=== PATIENT | male | born 1990 | race Caucasian/White ===

== ENCOUNTER 2024-09-06 23:05 | Emergency (ER) | payer MEDICAID, SELFPAY ==
[2024-09-06 23:13] VITALS: PULSE 83; O2SAT 97
[2024-09-06 23:16] VITALS: BP 145/105; PULSE 68; RESP 20; TEMP 36.4; O2SAT 95
[2024-09-06 23:18] VITALS: BMI 27.6
[2024-09-06 23:25] VITALS: BP 128/99; PULSE 68; RESP 19
[2024-09-06 23:57] VITALS: BP 149/91; PULSE 75; RESP 16
[2024-09-07 01:00] VITALS: BP 115/94; PULSE 83; RESP 21; TEMP 36.9; O2SAT 95
--- NOTE | 2024-09-07 01:22 | PD.EDADULT ---
ED General RME/HPI General Chief complaint: General Adult/Misc Complain Stated complaint: WEAKNESS,LETHARGIC Arrival date/time: 09/06/24 23:05 RME / HPI RME / HPI narrative: Dr. Gutierrez?s Main ED Evaluation: 33yo male AP presents to the ED after being found sleeping in the [facility] parking lot. Patient denies any drugs alcohol or smoking. Patient is homeless. Patient states that he was there with his when police arrived and he was brought to the emergency department. Denies fevers chills nausea vomiting chest pain palpitations abdominal pain dysuria hematuria melena bloody stools recent travel sick contacts Related Data Previous Rx's ?Medication ?Instructions ?Recorded naproxen 500 mg tablet 500 mg PO BID PRN pain #30 tabs 11/11/23 Allergies Allergy/AdvReac Type Severity Reaction Status Date / Time No Known Allergies Allergy Verified 11/09/23 22:32 Review of Systems Review of Systems Systems Reviewed: All systems reviewed, normal except as documented ED Exam Narrative Physical exam: GEN. APPEARANCE: The patient is alert awake oriented X-3 in no distress, lying down comfortably, does not look ill/toxic. Patient has good eye contact. Patient is cooperative. VITALS: All vitals were reviewed and the pulse ox is 95% on room air which is normal according to my interpretation. HEENT: Normocephalic, atraumatic. Pupils are equal and reactive. Oral mucosa is moist. Patent Nares NECK: Supple, nontender, no thyromegaly, no meningismus, no JVD CHEST: Symmetrical, atraumatic, and with equal expansion , Nontender on palpation no deformity and no crepitus. CARDIOVASCULAR: Heart regular rhythm no murmur or gallop rub or extra beats. LUNGS: Clear to auscultation bilaterally with symmetrical chest rise. No laboring tachypnea or wheezing. No intercostal subcostal retraction. No rales and no rhonchi. ABDOMEN: Soft, flat, nontender to palpation, no guarding or rebound tenderness. There are no abnormal masses palpated. Active and normal bowel sounds. EXTREMITIES: Nontender. No edema. No cyanosis. Patient is able to move all 4 extremities well, with full ROM and good CSM. SKIN: Warm and dry, no jaundice or rashes noted. NEURO: Patient is LEAL x 4, Cranial nerves II through XII grossly intact. There is no focal neurologic deficits noted. GCS is 15, PNS and SINGING TEACHER appear grossly intact. PSYCHIATRIC: Patient is in normal mood and affect. Course Quality Measures none Vital Signs Vital signs: Vital Signs Temperature 97.5 F 09/06/24 23:16 Pulse Rate 68 09/06/24 23:16 Respiratory Rate 20 09/06/24 23:16 Blood Pressure 145/105 H 09/06/24 23:16 Pulse Oximetry (%) 95 09/06/24 23:16 Oxygen Delivery Method Room Air 09/06/24 23:16 Discharge Plan Plan Patient Disposition: HOME (Self Care) Prescriptions/Referrals Prescriptions/Med Rec: No Action naproxen 500 mg tablet 500 mg PO BID PRN (Reason: pain) Qty: 30 0RF Referrals: No Primary/Family,Physician [Primary Care Provider] - In 1 week Problem List Clinical Impression: Homeless Patient/Caregiver Discharge Instructions Print Language: Kiswahili Stand Alone Forms: [facility] Award Info., Patient Portal Info Letter MDM Narrative [facility] hospital course: Scribe Attestation: 09/07/24 - Heather Guzmán am scribing for and in the presence of Dr. Gutierrez. Patient is a 33-year-old male with an emergency program brought in by EMS after he was found sleeping in the parking lot of a school. Patient states he is homeless, denies any drugs alcohol or smoking. On my assessment, patient GCS 15, ambulates without any difficulty, is clinically sober. Patient without any signs of trauma. Patient remembers the entire event. Patient states that he was with his boyfriend, the police arrived and he was brought here to the emergency department. Do not suspect acute intoxication at this time, no acute metabolic disturbance electrolyte abnormality, acute intracranial pathology given unremarkable exam. Given reassuring physical exam we will discharge patient in the care of his boyfriend. Clinical Information Provided by patient Medical Records Reviewed [facility] (Per chart review, patient was seen here on 11/12/23 for kidney stone.) Meds/Rx Considered, not Ordered None Labs/Rad/Tests considered, not Ordered None Chronic Illness/Social Conditions which may negatively complicate care or outcome(s)-explain: None or not applicable EKG EKG not done Lab Interpretation Labs: none Imaging Imaging interpretation: none Medication Administration(s) none Diagnosis Differential diagnosis: Homeless, sleepy, tired Most likely dx, and/or detailed dx discussion: Homeless Dispositon Disposition: Discharge Home
== END 2024-09-07 01:33 | disposition home or self-care (01) ==
PROVIDERS: Emergency Provider Emergency Medicine
DX: R53.1 Weakness (principal); Z59.00 Homelessness unspecified
CPT/HCPCS: 99281

== ENCOUNTER 2024-09-12 20:54 | Emergency (ER) | payer MEDICAID, SELFPAY ==
--- NOTE | 2024-09-12 21:02 | PD.EDAMS ---
Altered Mental Status RME/HPI General Chief Complaint: Altered Mental Status Stated Complaint: AMS Time Seen by Provider: 09/12/24 21:02 Arrival date/time: 09/12/24 21:00 Limitations: altered mental status RME / HPI RME / HPI narrative: DR. PETERSEN MAIN ED EVALUATION: 33 y/o male with Hx of depression, homelessness, and recreational drug use BIBA from outside an apartment complex for altered mental status. Patient was found unconscious by a bystander who called EMS as patient was GCS of 3. Per EMS, on arrival, patient was GCS of 10, blood sugar was 81 mg/dL and diaphoretic. Pupils were dilated and reactive to light. EMS was unable to obtain a medical or allergy history as patient was not answering questions. No other concerns or complaints expressed at this time. 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 HOUSING: Homeless OCCUPATION: Unemployed ED Exam General Limitations: Present altered mental status; Absent no limitations General appearance: Present in no apparent distress Head Head exam: Present atraumatic Eye Eye exam: Present normal appearance, PERRL and EOMI ENT ENT exam: Present normal exam, normal oropharynx and mucous membranes moist Neck Neck exam: Present normal inspection, full ROM and trachea midline Chest Chest inspection: Present normal inspection and symmetric chest wall rise Respiratory Respiratory exam: Present normal lung sounds bilaterally Cardiovascular Cardiovascular exam: Present regular rate, normal rhythm and normal heart sounds Abdominal Exam Abdominal exam: Present soft and normal bowel sounds Extremities Exam Extremities exam: Present normal inspection and full ROM Back Exam Back exam: Present normal inspection and full ROM Neurological Exam Neurological exam: Present CN II-XII intact; Absent alert or oriented X3 Psychiatric Psychiatric exam: Present normal affect and normal mood Skin Skin exam: Present warm, dry, intact and normal color Course Quality Measures none Orders Category Date Time Status Comparison Shopper STAT Care 09/12/24 21:03 Completed Continuous Pulse Oximetry ONCE Care 09/12/24 21:03 Completed EKG (ED ONLY) *Do not use* NOW Care 09/12/24 21:03 Completed Insert IV STAT Care 09/12/24 21:03 Completed Straight [In and Out Catheter] X1 Care 09/13/24 00:[address] head/brain wo con Stat Exams 09/12/24 21:06 Completed EKG (ED Only) Stat Exams 09/12/24 21:03 Ordered XR chest 1V portable Stat Exams 09/12/24 21:03 Completed Acetaminophen Stat Lab 09/12/24 21:22 Completed Alcohol, Blood Medical Stat Lab 09/12/24 21:22 Completed B-Type Natriuretic Peptide Stat Lab 09/12/24 22:39 Completed CBC Stat Lab 09/12/24 21:22 Completed Comprehensive Metabolic Panel Stat Lab 09/12/24 21:22 Completed Drug Screen,Urine Stat Lab 09/13/24 00:30 Completed Lipase Stat Lab 09/12/24 21:22 Completed Magnesium Stat Lab 09/12/24 21:22 Completed Salicylate Stat Lab 09/12/24 21:22 Completed Troponin I Stat Lab 09/12/24 21:22 Completed VBG [Venous Blood Gas] Stat Lab 09/12/24 21:22 Completed Vital Signs Vital signs: Vital Signs Temperature 98.4 F 09/12/24 21:10 Pulse Rate 60 09/12/24 21:10 Respiratory Rate 18 09/12/24 21:10 Blood Pressure 137/89 H 09/12/24 21:10 Pulse Oximetry (%) 96 09/12/24 21:10 Oxygen Delivery Method Room Air 09/12/24 21:10 Altered Mental Status MDM Narrative MDM Narrative:: Scribe Attestation: Octavia Guzmán am scribing for and in the presence of Dr. Petersen. Provider Notation: Although this document has been carefully reviewed, there may still be some phonetic and other typographical errors.? These errors are purely grammatical due to imperfections in the software program and should not be construed in any way to? compromise the substance of the patient's medical care during this visit. Patient pending review and final disposition. Patient sigedn-out to Dr. Forrester at 11 PM. Patient data External records reviewed:: [facility] previous records ( Reviewed prior ED records from 09/07/24. Patient was seen for Homeless.) and EMS form Clinical information provided by:: EMS Social determinants that could affect healthcare access:: substance use (Methamphetamine, Homeless) Patient has the following chronic illnesses:: Recreational drug use How is presenting disease/condition affected by chronic disease/condition?: exacerbated by Evaluation data The following diagnostics were reviewed and interpreted by me:: lab results, radiology exam(s) and EKG tracing(s) Lab and/or radiology exams considered but not ordered:: None Interpretation Summary: RADIOLOGY Procedure(s): XR chest 1V portable Accession Number(s): [id number] cc: Óscar Petersen MD; Raúl Godwin MD; NO PRIMARY/FAMILY,PHYSICIAN~ Examination: Chest AP single view TECHNIQUE: AP portable supine chest single view Date and time: September 12, 2024 2122 hours INDICATIONS: Chest pain shortness of breath today. FINDINGS: Normal heart size. The lungs are clear. The osseous structures are intact IMPRESSION: No active disease Dictated By: Raúl Godwin MD Procedure(s): CT head/brain wo con Accession Number(s): [id number] cc: Óscar Petersen MD; Raúl Godwin MD; NO PRIMARY/FAMILY,PHYSICIAN~ Examination: CT brain head without contrast. 2-D sagittal coronal reconstructions Date and time of exam:September 12, 2024 2151 hours INDICATIONS: Altered mental status today CTDI: vol (mGy):54 DLP: (mGycm):1065 Technique: Multiple CT axial sections of the brain have been obtained, 5 mm slice thickness. Contrast has not been administered. 2-D sagittal, coronal reconstructions have been obtained Low dose protocols were performed. One or more of the following dose reduction techniques were used; automated exposure control, adjustment of the mA and/or KV according to patient size, use of iterative reconstruction technique. Findings: No significant ventricular enlargement. Intra-axial or extra-axial hemorrhage density is not seen. No mass effect or midline shift Basal cisterns are not remarkable. Fourth ventricle is midline. Cranial vault intact. Impression: Negative for acute hemorrhage, mass effect or midline shift Advise clinical correlation and follow up accordingly Dictated By: Raúl Godwin MD Medications / Prescriptions Medications or Prescriptions considered but not ordered:: None Medication administrations:: See above if any Consultations Consultation(s) initiated? (list below): No Diagnosis Differential diagnosis altered mental status: alcoholic intoxication, altered mental status, delirium, hypoglycemia, hyponatremia and subarachnoid hemorrhage Most likely diagnosis given after review of the tests above:: Drug use Admission Indicated Admission indicated?: not indicated Explain why admission is indicated or not indicated:: Pending review and final disposition. Admission Request Was there a request for admission?: No Disposition Plan Disposition Plan: other (specify) (Signed-out to Dr. Forrester at 11 PM.) Discharge Plan Plan Patient Disposition: HOME (Self Care) Patient condition on transfer: Stable Prescriptions/Referrals Prescriptions/Med Rec: No Action naproxen 500 mg tablet 500 mg PO BID PRN (Reason: pain) Qty: 30 0RF Referrals: No Primary/Family,Physician [Primary Care Provider] - In 1 week Problem List Clinical Impression: Methamphetamine intoxication Patient/Caregiver Discharge Instructions Discharge Activity: activity as tolerated Education Materials: Understanding Methamphetamine ..., ED Drug Abuse Additional Instructions: Discharge Instructions from Dr. Forrester printed for you: 1. You are treated for methamphetamine intoxication. 2. To prevent future serious injuries and illnesses, even potentially fatal, avoid all drugs at all cost. 3. See a private doctor on 09/14/2024 for recheck and further care. Ask to review all test results and official radiology reports, to make sure you receive all necessary follow-ups and monitoring. Ask for help to quit all drugs. 4. Seek immediate ankle care with any concerns. Print Language: Lao Stand Alone Forms: [facility] Award Info., Patient Portal Info Letter
[2024-09-12 21:03] VITALS: PULSE 88; RESP 18; O2SAT 99
--- NOTE | 2024-09-12 21:03 | XR_ITS ---
Examination: Chest AP single view TECHNIQUE: AP portable supine chest single view Date and time: September 12, 20242121 hours INDICATIONS: Chest pain shortness of breath today. FINDINGS: Normal heart size. The lungs are clear. The osseous structures are intact IMPRESSION: No active disease
--- NOTE | 2024-09-12 21:06 | XR_ITS ---
Examination: CT brain head without contrast. 2-D sagittal coronal reconstructions Date and time of exam:September 12, 2024 2151 hours INDICATIONS: Altered mental status today CTDI: vol (mGy):54 DLP: (mGycm):1065 Technique: Multiple CT axial sections of the brain have been obtained, 5 mm slice thickness. Contrast has not been administered. 2-D sagittal, coronal reconstructions have been obtained Low dose protocols were performed. One or more of the following dose reduction techniques were used; automated exposure control, adjustment of the mA and/or KV according to patient size, use of iterative reconstruction technique. Findings: No significant ventricular enlargement. Intra-axial or extra-axial hemorrhage density is not seen. No mass effect or midline shift Basal cisterns are not remarkable. Fourth ventricle is midline. Cranial vault intact. Impression: Negative for acute hemorrhage, mass effect or midline shift Advise clinical correlation and follow up accordingly
[2024-09-12 21:10] VITALS: BP 137/89; PULSE 60; RESP 18; TEMP 36.9; O2SAT 96
[2024-09-12 21:29] LABS: Base Excess, Venous 0 (-3-3); O2 Saturation, Venous 64 % (96-97); PCO2, Venous 47 mmHg (36-56); PO2, Venous 32 mmHg (15-58); pH, Venous 7.36 (7.33-7.66)
[2024-09-12 21:38] LABS: Basophils # (Auto) 0.1 Thou/mm3 (0.0-0.2); Basophils % (Auto) 1 % (0-2.5); Eosinophils # (Auto) 0.7 Thou/mm3 (0.0-0.5); Eosinophils % (Auto) 8 % (0-10); Hematocrit 48.1 % (41.0-53.0); Hemoglobin 16.9 g/dL (13.5-16.0); Immature Granulocytes Auto 0.03 Thou/mm3 (0.00-0.00); Lymphocytes # (Auto) 3.6 Thou/mm3 (1.0-4.8); Lymphocytes % (Auto) 38 % (10-50); Mean Corpuscular HGB Conc 35.1 g/dl (31.0-37.0); Mean Corpuscular Hemoglobin 32.2 pg (25.0-35.0); Mean Corpuscular Volume 92 fL (80-100); Monocytes # (Auto) 0.7 Thou/mm3 (0.0-0.8); Monocytes % (Auto) 7 % (0-12); Neutrophils # (Auto) 4.5 Thou/mm3 (1.8-7.7); Neutrophils % (Auto) 47 % (37-80); Nucleated Red Blood Cell # 0.00 Thou/mm3 (0.00-0.00); Nucleated Red Blood Cell % 0 /100 WBC (0); Platelet Count 153 Thou/mm3 (140-440); RDW Standard Deviation 41.7 fL (35.1-43.9); Red Blood Count 5.25 Miln/mm3 (4.50-5.90); White Blood Count 9.6 Thou/mm3 (3.8-10.6)
[2024-09-12 21:41] VITALS: BMI 27.7
[2024-09-12 21:55] LABS: Acetaminophen < 2.0 mcg/mL (10.0-20.0); Alanine Aminotransferase 19 U/L (10-49); Albumin, Serum 4.7 gm/dL (3.5-5.0); Albumin/Globulin Ratio 1.7 (1.2-2.2); Alcohol, Blood Medical < 3.0 mg/dL (0-10.0); Alkaline Phosphatase 79 U/L (46-116); Anion Gap 14 (7-16); Aspartate Amino Transferase 25 U/L (0-34); BUN/Creatinine Ratio 7 Ratio (12-20); Bilirubin,Total 0.4 mg/dL (0.3-1.2); Blood Urea Nitrogen 7 mg/dL (9-23); Calcium 9.4 mg/dL (8.3-10.6); Calcium (Corrected) 9.4 mg/dL (8.5-10.1); Carbon Dioxide 21.7 mMol/L (20.0-31.0); Chloride 109 mMol/L (98-107); Creatinine (Component) 1.0 mg/dL (0.6-1.3); Estimated Creatinine Clearance 121.0 mL/min (>60); Globulin 2.8 gm/dL (2.3-3.5); Glucose 86 mg/dL (74-106); Lipase 39 U/L (12-53); Magnesium 2.6 mg/dL (1.6-2.6); Osmolality,Calculated 285 (275-295); Potassium 4.4 mMol/L (3.4-5.1); Salicylate < 3.0 mg/dL; Sodium 145 mMol/L (136-145); Total Protein 7.5 gm/dL (5.7-8.2); Troponin I < 0.002 ng/mL (0.0-0.045); eGFR > 60 See Note
--- NOTE | 2024-09-12 22:19 | PC.NURSE ---
pt awake and alert at this time. pt using his cellphone. pt updated on plan of care. pt made aware waiting for results.
[2024-09-12 22:29] VITALS: BP 164/116; PULSE 96; RESP 20; TEMP 36.8; O2SAT 98
--- NOTE | 2024-09-12 22:59 | PD.EDADDENDU ---
Emergency Room Addendum <Octavia Hawk - Last Filed: 09/13/24 01:48> Addendum Narrative: I took over the care from previous shift physician at 11 PM on 09/12/2024. See previous notes for complete H & P and ED course. I reviewed all diagnostic test results. Blood tests and urine tests show positive for amphetamines. Diagnoses include: Methamphetamine intoxication. Based on my best medical judgment, made decision no further evaluation or treatment indicated at this time. Patient understands and agrees to the discharge instructions customized and printed, see below. Discharge Instructions from Dr. Forrester printed for you: 1. You are treated for methamphetamine intoxication. 2. To prevent future serious injuries and illnesses, even potentially fatal, avoid all drugs at all cost. 3. See a private doctor on 09/14/2024 for recheck and further care. Ask to review all test results and official radiology reports, to make sure you receive all necessary followups and monitoring. Ask for help to quit all drugs. 4. Seek immediate ankle care with any concerns. Todd Forrester MD <Todd Forrester MD - Last Filed: 09/13/24 04:28> Addendum Narrative: I took over the care from previous shift physician at 11 PM on 09/12/2024. See previous notes for complete H & P and ED course. I reviewed all diagnostic test results. Blood tests and urine tests remarkable for positive UDS for methamphetamine. Diagnoses include: Methamphetamine intoxication. With time, patient returned to normal mental status baseline. Patient requested discharge. Based on my best medical judgment, made decision no further evaluation or treatment indicated at this time. Patient understands and agrees to the discharge instructions customized and printed, see below. Discharge Instructions from Dr. Forrester printed for you: 1. You are treated for methamphetamine intoxication. 2. To prevent future serious injuries and illnesses, even potentially fatal, avoid all drugs at all cost. 3. See a private doctor on 09/14/2024 for recheck and further care. Ask to review all test results and official radiology reports, to make sure you receive all necessary followups and monitoring. Ask for help to quit all drugs. 4. Seek immediate ankle care with any concerns. Todd Forrester MD
[2024-09-12 23:10] LABS: B-Type Natriuretic Peptide < 20 pg/mL (0-100)
[2024-09-13 00:06] VITALS: BP 127/84; PULSE 74; RESP 19; O2SAT 97
[2024-09-13 00:31] VITALS: BP 129/92; PULSE 75; RESP 20; TEMP 36.9; O2SAT 97
[2024-09-13 00:57] LABS: Amphetamine/Methamp Scrn,U Positive (Negative); Barbiturate Screen,Urine Negative (Negative); Benzodiazepines Screen,Urine Negative (Negative); Benzoylecgonine Screen, Ur Negative (Negative); Fentanyl Screen,Urine Negative (Negative); Opiate Screen,Urine Negative (Negative); THC Screen,Urine Negative (Negative)
[2024-09-13 02:03] VITALS: BP 109/71; PULSE 79; RESP 17; O2SAT 97
== END 2024-09-13 02:09 | disposition home or self-care (01) ==
PROVIDERS: Emergency Provider Emergency Medicine
DX: F15.129 Other stimulant abuse with intoxication, unspecified (principal); R07.9 Chest pain, unspecified; R41.82 Altered mental status, unspecified; R06.02 Shortness of breath; R00.1 Bradycardia, unspecified
CPT/HCPCS: 36415; 70450; 71045; 80053; 80307; 80320; 80329; 82803; 83690; 83735; 83880; 84484; 85025; 93005; 99284; G0480

== ENCOUNTER 2024-10-23 14:00 | Emergency (ER) | payer MEDICAID, SELFPAY ==
[2024-10-23 15:52] VITALS: BP 151/84; PULSE 78; RESP 22; TEMP 37.2; O2SAT 99
--- NOTE | 2024-10-23 15:58 | XR_ITS ---
Examination: CT abdomen and pelvis without contrast. Coronal 3-D reconstructions. Sagittal 2-D reconstructions. Date and time of exam:October 23, 2024 1452 hours Comparison November 09, 2023 INDICATIONS: Onset right-sided flank pain today, history left hydronephrosis 2 mm distal left ureteral calculus on stone study November 09, 2023 CTDI: vol (mGy): 9.54 DLP: (mGycm): 568 Technique: Axial images of the abdomen have been obtained, 3 mm slice thickness Intravenous contrast material has not been administered. Low dose protocols were performed. One or more of the following dose reduction techniques were used; automated exposure control, adjustment of the mA and/or KV according to patient size, use of iterative reconstruction technique. Findings: No focal liver or splenic lesions No gallstones No pancreatic or adrenal mass 4 mm lower pole left renal calculus Mild right hydronephrosis secondary to 2 mm distal right ureterovesical junction calculus No bladder mass No bowel obstruction Normal appendix IMPRESSION: Mild right hydronephrosis secondary to 2 mm distal right ureterovesical junction calculus
--- NOTE | 2024-10-23 15:59 | PD.EDRME ---
Rapid Medical Screening Exam [facility] Arrival date/time: 10/23/24 14:00 CC: Right flank and right low back pain HPI woke him up at approximately noon today. No prior history of similar events no OTC medicines taken the patient is pale diaphoretic states the pain does wrap around to his lower side. Patient is anxious, in moderate distress. Denies bloody urine painful urination Chief Complaint: Back Pain/Injury Time Seen by Provider: 10/23/24 15:58 Vital signs: Vital Signs Temperature 99.0 F 10/23/24 15:52 Pulse Rate 78 10/23/24 15:52 Respiratory Rate 22 H 10/23/24 15:52 Blood Pressure 151/84 H 10/23/24 15:52 Pulse Oximetry (%) 99 10/23/24 15:52 Oxygen Delivery Method Room Air 10/23/24 15:52
[2024-10-23 16:17] LABS: Basophils # (Auto) 0.1 Thou/mm3 (0.0-0.2); Basophils % (Auto) 1 % (0-2.5); Eosinophils # (Auto) 0.7 Thou/mm3 (0.0-0.5); Eosinophils % (Auto) 5 % (0-10); Hematocrit 45.8 % (41.0-53.0); Hemoglobin 16.0 g/dL (13.5-16.0); Immature Granulocytes Auto 0.05 Thou/mm3 (0.00-0.00); Lymphocytes # (Auto) 2.9 Thou/mm3 (1.0-4.8); Lymphocytes % (Auto) 21 % (10-50); Mean Corpuscular HGB Conc 34.9 g/dl (31.0-37.0); Mean Corpuscular Hemoglobin 32.4 pg (25.0-35.0); Mean Corpuscular Volume 93 fL (80-100); Monocytes # (Auto) 0.7 Thou/mm3 (0.0-0.8); Monocytes % (Auto) 5 % (0-12); Neutrophils # (Auto) 9.3 Thou/mm3 (1.8-7.7); Neutrophils % (Auto) 68 % (37-80); Nucleated Red Blood Cell # 0.00 Thou/mm3 (0.00-0.00); Nucleated Red Blood Cell % 0 /100 WBC (0); Platelet Count 155 Thou/mm3 (140-440); RDW Standard Deviation 43.5 fL (35.1-43.9); Red Blood Count 4.94 Miln/mm3 (4.50-5.90); White Blood Count 13.7 Thou/mm3 (3.8-10.6)
[2024-10-23] MEDS: KETOROLAC INJ 60 MG/2 ML VIAL 30 MG IM (16:41)
[2024-10-23 16:42] LABS: Anion Gap 8 (7-16); BUN/Creatinine Ratio 8 Ratio (12-20); Blood Urea Nitrogen 7 mg/dL (9-23); Calcium 9.5 mg/dL (8.3-10.6); Carbon Dioxide 26.8 mMol/L (20.0-31.0); Chloride 106 mMol/L (98-107); Creatinine (Component) 0.9 mg/dL (0.6-1.3); Glucose 127 mg/dL (74-106); Osmolality,Calculated 281 (275-295); Potassium 4.0 mMol/L (3.4-5.1); Sodium 141 mMol/L (136-145); eGFR > 60 See Note
[2024-10-23] MEDS: ONDANSETRON ODT 4 MG TABRAP PO (16:42)
--- NOTE | 2024-10-23 16:53 | PD.EDADULT ---
ED General RME/HPI General Chief complaint: Back Pain/Injury Stated complaint: R FLANK PAIN Time Seen by Provider: 10/23/24 15:58 Arrival date/time: 10/23/24 14:00 CC: Right flank pain right low back pain with radiation to the right groin onset approximately new with progressive in. Crease in severity denies any vomiting but has active nausea. Patient is diaphoretic. Prior history of kidney stones. RME / HPI RME / HPI narrative: 10/23/24 14:00 CC: Right flank and right low back pain HPI woke him up at approximately noon today. No prior history of similar events no OTC medicines taken the patient is pale diaphoretic states the pain does wrap around to his lower side. Patient is anxious, in moderate distress. Denies bloody urine painful urination Related Data Previous Rx's ?Medication ?Instructions ?Recorded naproxen 500 mg tablet 500 mg PO BID PRN pain #30 tabs 11/11/23 ketorolac 10 mg tablet 10 mg PO Q8H #10 tabs 10/23/24 Allergies Allergy/AdvReac Type Severity Reaction Status Date / Time No Known Allergies Allergy Verified 09/15/24 12:16 Review of Systems Review of Systems Narrative Review of Systems: GEN: No fever, no chills, no weight loss EYES: No discharge, no visual changes, no pain HEENT: No ear pain, no congestion, no sore throat PULM: No shortness of breath, no cough, no congestion CV: No chest pain, no dyspnea on exertion, no palpitations GI: No nausea, no vomiting, no diarrhea, no pain, no constipation : No frequency, no urgency, no dysuria MUSC/SKEL: No joint pain, + back pain SKIN: No rash PSYCH: No hallucinations, no depression HEME/LYMPH: No easy bleeding or bruising tendencies NEURO: No weakness, no headache Past Medical History Past Medical History CARDIAC: Negative Congestive Heart Failure RESPIRATORY: Negative Chronic Obstructive Pulmonary Disease (COPD) GENITOURINARY: Negative Renal Disease ENDOCRINE: Negative Diabetes Mellitus Type 1 or Diabetes Mellitus Type 2 PSYCHO/SOCIAL: Positive Depression Social History SMOKING STATUS: Current every day smoker SUBSTANCE USE: methamphetamine OCCUPATION: Unemployed ED Exam Narrative Physical exam: [General: In moderate discomfort but not in any acute distress Head normocephalic HEENT: Eyes pupils are PERRLA EOMs are intact within acceptable limits Neck is supple nontender Chest equal chest rise nontender to palpation Respiratory: Clear to auscultation no wheezes crackles or rubs CV: Rate rhythm is regular no murmurs rubs or clicks Abdomen is distended secondary to body habitus soft nontender no masses positive bowel sounds all 4 quadrants Back: Right CVA tenderness with palpation no left CVA tenderness. Skin: Diaphoretic, skin is intact no petechiae rash induration ulceration or crepitus Extremities: Moving all extremity against resistance cap refill less than 2 seconds neurosensory intact Neuro: Awake alert oriented x3 Glascow coma 15 no focal deficits] Course Quality Measures none Orders Category Date Time Status CT abdomen pelvis wo con Stat Exams 10/23/24 15:58 Completed Basic Metabolic Panel Stat Lab 10/23/24 15:33 Completed CBC Stat Lab 10/23/24 15:33 Completed Ketorolac Inj [Toradol Inj] Med 10/23/24 15:58 Discontinued 30 mg IM X1 ONE Ondansetron Odt [Zofran Odt] Med 10/23/24 15:58 Discontinued 4 mg PO X1 ONE Vital Signs Vital signs: Vital Signs Temperature 99.0 F 10/23/24 15:52 Pulse Rate 78 10/23/24 15:52 Respiratory Rate 22 H 10/23/24 15:52 Blood Pressure 151/84 H 10/23/24 15:52 Pulse Oximetry (%) 99 10/23/24 15:52 Oxygen Delivery Method Room Air 10/23/24 15:52 Discharge Plan Plan Patient Disposition: HOME (Self Care) Patient condition on transfer: Stable Prescriptions/Referrals Prescriptions/Med Rec: New ketorolac 10 mg tablet 10 mg PO Q8H Qty: 10 0RF Rx Instructions: maximum total duration of 5 days from all oral, intranasal, or parenteral formulations No Action naproxen 500 mg tablet 500 mg PO BID PRN (Reason: pain) Qty: 30 0RF Problem List Clinical Impression: Urolithiasis, Hydroureter Patient/Caregiver Discharge Instructions Education Materials: ED Kidney Stone w/ Colic Additional Instructions: Take the medication as prescribed for temporary pain relief drink plenty of water if is worsening of symptoms return the emergency room for reevaluation. Print Language: Prydeinig Stand Alone Forms: [employer] Award Info., Patient Portal Info Letter, Work/School Release PA/[employer] Supervising Physician PA/[employer] Supervising Physician: Bashir Thomas ENP [facility] Clinical Information Provided by patient Medical Records Reviewed [facility] Meds/Rx Considered, not Ordered None Labs/Rad/Tests considered, not Ordered None Chronic Illness/Social Conditions which may negatively complicate care or outcome(s)-explain: None or not applicable EKG EKG not done Lab Interpretation Lab(s) interpretation(s): CBC shows a mild leukocytosis no anemia thrombocytopenia CMP shows no significant electrolyte imbalances glucose at 127 no transaminitis or T. bili elevation. Imaging Provider imaging interpretation(s): CT of the abdomen shows 2 mm stone at the right UVJ mild hydro. Medication Administration(s) Medication Administration History Discontinued Medications Ketorolac Tromethamine (Ketorolac Inj 60 Mg/2 Ml Vial) 30 mg IM X1 ONE Stop: 10/23/24 15:59 Last Admin: 10/23/24 16:41 Dose: 30 mg Documented By: BERNADINE Comments: GIVEN DURING COMPUTER DOWNTIME Ondansetron HCl (Ondansetron Odt 4 Mg Tabrap) 4 mg PO X1 ONE; Protocol Stop: 10/23/24 15:59 Last Admin: 10/23/24 16:42 Dose: 4 mg Documented By: BERNADINE Comments: GIVEN DURING COMPUTER DOWNTIME Diagnosis Differential diagnosis: Hydronephrosis hydroureter urolithiasis UTI Differential dx and/or dx ruled out: Hydronephrosis urolithiasis
== END 2024-10-23 17:07 | disposition home or self-care (01) ==
LOC: SERX 17:08
PROVIDERS: Emergency Provider Family Medicine; PCP Physician Assistant
DX: N13.4 Hydroureter (principal); N20.1 Calculus of ureter; Z87.442 Personal history of urinary calculi; F17.210 Nicotine dependence, cigarettes, uncomplicated
CPT/HCPCS: 36415; 74176; 80048; 85025; 96372; 99283; J1885; Q0162